=== PATIENT | male | born 1995 | race Caucasian/White ===

== ENCOUNTER 2016-08-25 06:50 | Observation (INO) | payer OTHER ==
[~2016-08-25] VITALS: Ht 172.7 cm; Wt 53.5 kg
[~2016-08-25 06:50] MED LIST: ALPR2TAB1 PO; CINA60TA1 PO; CLON0.1T42 PO; HYDR-3229 PO; HYDR-4452 PO; SEVE800T6 PO
[2016-08-25 07:03] VITALS: BP 100/69
--- NOTE | 2016-08-25 07:19 | NUR ---
TO ER BED 8
[2016-08-25] MEDS ORDERED: PROCHLORPERAZINE 10 MG/2 ML VIAL IVP ONE (07:20)
[2016-08-25] MEDS ORDERED: diphenhydrAMINE 50 MG/ML VIAL IVP ONE (07:20)
[2016-08-25] MEDS ORDERED: SUMAtriptan 6 MG/0.5 ML VIAL SUBQ ONE (07:20)
--- NOTE | 2016-08-25 07:20 | NUR ---
Note undone in EDM - 08/25/16 at 0942 by [email or web address] /M BIB MOTHER C/O HEADACHE LAST NIGHT AND CAN'T SLEEP, NO TRAUMA NOR INJURY. PT HAS HX OF HTNM AN & ESRD. HD SITE YESSENIA;BRUIT&THRILL.hD X3 /WK ON & SAT . DENIES N/V/D; SKIN IS PINK/WARM/DRY; AAOX4 WITH EVEN AND STEADY GAIT; LUNGS CLEAR BL; HR EVEN AND REGULAR; PT DENIES ANY FEVER, CP, SOB, OR COUGH AT THIS TIME; PATIENT STATES PAIN OF 9/10 AT THIS TIME; VSS; PATIENT POSITIONED FOR COMFORT; HOB ELEVATED; BEDRAILS UP X2; BED DOWN. ER MD MADE AWARE OF PT STATUS.
--- NOTE | 2016-08-25 07:20 | NUR ---
20/M BIB MOTHER C/O HEADACHE LAST NIGHT AND CAN'T SLEEP, NO TRAUMA NOR INJURY. PT HAS HX OF HTNM AN & ESRD. HD SITE ROWENA;BRUIT&THRILL.hD X3 /WK ON TUE, & SAT . DENIES N/V/D; SKIN IS PINK/WARM/DRY; AAOX4 WITH EVEN AND STEADY GAIT; LUNGS CLEAR BL; HR EVEN AND REGULAR; PT DENIES ANY FEVER, CP, SOB, OR COUGH AT THIS TIME; PATIENT STATES PAIN OF 9/10 AT THIS TIME; VSS; PATIENT POSITIONED FOR COMFORT; HOB ELEVATED; BEDRAILS UP X2; BED DOWN. ER MD MADE AWARE OF PT STATUS.
[2016-08-25] MEDS ORDERED: KETOROLAC 30 MG/ML VIAL IVP ONE (09:00)
[2016-08-25 09:34] LABS: BASOPHILS # (AUTO) 0.2 K/uL (0.00-0.22); BASOPHILS % (AUTO) 2.3 % (0.0-2.0); EOSINOPHILS # (AUTO) 0.2 K/uL (0-0.4); EOSINOPHILS % (AUTO) 2.6 % (0.0-4.0); HEMATOCRIT 37.6 % (36-52); HEMOGLOBIN 12.1 g/dL (12.0-18.0); LYMPHOCYTES # (AUTO) 2.6 K/uL (2.0-11.5); MEAN CORPUSCULAR HEMOGLOBIN 31 pg (27-31); MEAN CORPUSCULAR HGB CONC 32 g/dL (33-37); MEAN CORPUSCULAR VOLUME 97 fL (80-94); MONOCYTES # (AUTO) 0.4 K/uL (0.8-1.0); MONOCYTES % (AUTO) 6.6 % (1.7-9.3); NEUTROPHILS # (AUTO) 3.3 K/uL (1.8-7.7); NEUTROPHILS % (AUTO) 49.5 % (42.2-75.2); PLATELET COUNT (AUTO) 156 K/uL (140-450); RED BLOOD CELL COUNT(AUTO) 3.88 MIL/uL (4.20-6.10); RED CELL DISTRIBUTION WIDTH 13.8 % (11.6-13.7); WHITE BLOOD COUNT (AUTO) 6.7 K/uL (4.8-10.8)
--- NOTE | 2016-08-25 09:36 | NUR ---
PT TAKEN TO CT VIA W/C ACCOMPANIED BY LEGGER PRESS OPERATOR
--- NOTE | 2016-08-25 09:42 | NUR ---
PT RETURN FROM CT
[2016-08-25 09:43] LABS: ALBUMIN 4.6 g/dL (3.4-5.0); ANION GAP 18.1 (8-16); CALCIUM 8.4 mg/dL (8.5-10.1); CARBON DIOXIDE 30.8 mmol/L (21-32); POTASSIUM 5.9 mmol/L (3.5-5.1); TOTAL BILIRUBIN 0.4 mg/dL (0.0-1.0); TOTAL PROTEIN, SERUM 9.1 g/dL (6.4-8.2)
[2016-08-25 09:46] LABS: CREATININE 8.7 mg/dL (0.6-1.3)
[2016-08-25] MEDS ORDERED: SODIUM BICARBONATE 8.4% PFS 50 MEQ/50 ML SYR IVP ONE (09:50)
[2016-08-25] MEDS ORDERED: INSULIN HUMAN REGULAR 100 UNITS/ML 10 ML VIAL IVP ONE (09:50)
[2016-08-25] MEDS ORDERED: DEXTROSE 50% 50 ML SYR IVP ONE ×2 (09:50→11:35)
[2016-08-25] MEDS ORDERED: ALBUTEROL 0.083% 2.5 MG/3 ML NEBU INH ONE (09:50)
[2016-08-25] MEDS ORDERED: SODIUM POLYSTYRENE 15 GM/60 ML UDBTL PO ONE (09:50)
[2016-08-25] MEDS ORDERED: HYDROcodone/APAP 5/325 MG 1 TAB TAB PO PRN ×2 (11:00)
[2016-08-25] MEDS ORDERED: ACETAMINOPHEN 325 MG TAB PO PRN (11:00)
[2016-08-25] MEDS ORDERED: ONDANSETRON 4 MG/2 ML VIAL IVP PRN (11:00)
[2016-08-25] MEDS ORDERED: HYDROcodone/APAP 10/325 MG 1 TAB TAB PO PRN (11:05)
--- NOTE | 2016-08-25 11:38 | NUR ---
BS 38. GAVE JUICE 120 ML. NOTIFIED .ORDER GLUCOSE 50ML.PT AAOX4.
--- NOTE | 2016-08-25 11:56 | NUR ---
BS 87Patient appears to be resting comfortably in bed. Vital Signs within normal limits. Respirations even and unlabored.
[2016-08-25] MEDS ORDERED: NACL 0.9% 250 ML IV ONE (12:10)
--- NOTE | 2016-08-25 12:25 | NUR ---
Patient will be admitted to care of DR YEAGER. Admited to ICU. Will go to room5. Belongings list completed. Report to GEM DELVALLE.
[2016-08-25] MEDS ORDERED: SUMAtriptan 25 MG TAB PO SCH (12:30)
--- NOTE | 2016-08-25 12:50 | NUR ---
ADMITTING A 20 YEAR OLD MALE FROM ER WITH CO THROBBING HEADACHE 8/10,CONSTANT FROM HOME .PER PATIENT TORADOL FROM ER DID NOT HELP.JACIEL BENAVIDEZ AWARE.WILL GIVE PAIN MEDS ORDERED.NSR ON THE MONITOR.RIGHT UPPER ARM AV FISTULA POSITIVE FOR BRUIT AND THRILL.PER PT WITH LEFT ARM AV FISTULA NONFUNCTIONAL BECAUSE IT DID MATURE.LEFT FOREARM 22 GAUGE WITH NORMAL SALINE RUNNING.PER PT ANURIC SO UNABLE TO GET URINE DRUG SCREEN.PER PT SLEEPS LATE AT NIGHT PLAYING VIDEOGAMES.NO CO SHORTNESS OF BREATH.WILL MONITOR
[2016-08-25 12:51] VITALS: BP 98/63
[2016-08-25] MEDS: cloNIDine 0.1 MG TAB PO SCH ×2 (13:00→17:00)
[2016-08-25] MEDS: HYDROcodone/APAP 10/325 MG 1 TAB TAB PO PRN ×2 (13:14→21:58)
[2016-08-25] MEDS: LORazepam 2 MG/ML VIAL IVP PRN ×2 (13:15→18:02)
--- NOTE | 2016-08-25 14:00 | NUR ---
NO CO HEADACHE PER PT PAIN MEDS HELPED.
[2016-08-25] MEDS ORDERED: MIDODRINE 5 MG TAB PO PRN (14:20)
[2016-08-25 16:00] VITALS: BP 110/65
--- NOTE | 2016-08-25 16:06 | NUR ---
MOTHER AND SISTER AT THE BEDSIDE AND UPDATED ABOUT PATIENTS CONDITION.NO CO HEADACHE.
--- NOTE | 2016-08-25 16:23 | NUR ---
BARBARA GOODSON FROM [facility] NOTIFIED OF HD ORDER FOR TOMORROW.
--- NOTE | 2016-08-25 16:30 | NUR ---
DAVID STODDARD MADE AWARE OF ORDER TOMORROW. Addendum: 08/25/16 at 0294 by Suzan Wheeler RN RN CLARIFICATION OF NAME IS BARBARA GOODSON FROM .
--- NOTE | 2016-08-25 17:00 | NUR ---
NO CO PAIN.SCD APPLIED
[2016-08-25] MEDS: SEVELAMER CARBONATE 800 MG TAB PO SCH (18:01)
[2016-08-25] MEDS ORDERED: BLOOD GLUCOSE MONITORING 1 DEV DEV FS SCH (19:00)
--- NOTE | 2016-08-25 19:00 | NUR ---
BLOOD SUGAR 112 Addendum: 08/25/16 at 1901 by Suzan Wheeler RN RN BLOOD SUGAR 113 NOT 112 MG/DL
--- NOTE | 2016-08-25 19:21 | NUR ---
RECEIVED REPORT FROM MOOK RABAGO. PATIENT IS ALERT, AWAKE, AND SITTING UP IN BED WATCHING TV. NO SIGNS OF DISTRESS OR SOB NOTED. PATIENT IS TELEMETRY STATUS WITH DX OF INTRACTABLE HEADACHE. BREATH SOUNDS ARE CLEAR ON AUSCULTATION AND BOWEL SOUNDS ARE ACTIVE. PATIENT IS AFEBRILE AND IS ST ON CAN CARRIER. NO REPORTS OF PAIN OR DISCOMFORT AT THIS TIME. THERE IS A #22 IN THE LEFT FOREARM SALINE LOCK. THERE IS AN AV FISTULA IN THE RIGHT UPPER ARM FOR DIALYSIS. SCDS ARE IN PLACE FOR VTE PROPHYLAXIS. EXPLAINED PLAN OF CARE TONIGHT TO INCLUDE MEDICATION ADMINISTRATION, TELEMETRY MONITORING, AND VITAL SIGNS Q4H. PATIENT VERBALIZED UNDERSTANDING. PATIENT'S NEEDS MET AT THIS TIME. CALL LIGHT WITHIN REACH. CONTINUE TO MONITOR PATIENT.
[2016-08-25] MEDS: diphenhydrAMINE 50 MG/ML VIAL IVP PRN (19:35)
[2016-08-25 20:00] VITALS: BP 107/67
[2016-08-25] MEDS: hydrALAZINE 25 MG TAB PO SCH (20:37)
[2016-08-25] MEDS: ALPRAZolam 0.5 MG TAB PO SCH (20:37)
--- NOTE | 2016-08-25 20:40 | NUR ---
PATIENT TOLERATED DUE MEDICATIONS. EXPLAINED INDICATIONS AND BENEFITS FOR HEPARIN AND HYDRALAZINE. PATIENT REFUSED SCHEDULED 2100 HEPARIN AND HYDRALAZINE. PATIENT'S NEEDS MET AT THIS TIME. CALL LIGHT WITHIN REACH. CONTINUE TO MONITOR PATIENT.
--- NOTE | 2016-08-25 21:30 | NUR ---
PATIENT COMPLAINING OF HEADACHE. WILL MEDICATE PER DOCTOR'S ORDERS. Addendum: 08/25/16 at 2202 by Nadiya Jesus RN BLOOD PRESSURE IS 131/92 AND HR IS 106. HEADACHE 11/04.
--- NOTE | 2016-08-25 21:35 | NUR ---
PATIENT REFUSED NORCO 10/325 TWO TABLETS PO AT THIS TIME AND STATED "I DON'T THINK NORCO IS WORKING FOR ME. CAN YOU PLEASE CALL DR. BERNAL AND GET ME MORPHINE PLEASE?" CHARGE NURSE RICHMOND RABAGO MADE AWARE.
--- NOTE | 2016-08-25 21:38 | NUR ---
PAGED DR. CESAR, WHO IS SALES AGENT TRADING STAMPS DR. BERNAL. WILL WAIT CALL BACK.
--- NOTE | 2016-08-25 21:40 | NUR ---
SPOKE TO DR. CESAR REGARDING PATIENT'S REQUEST FOR MORPHINE. DR. FRITZ STATED THE PATIENT NEEDS TO SLEEP AND WILL NOT PUT IN ORDERS FOR MORPHINE. DR. CESAR ORDERED RESTORIL 15MG PO HS. WILL FOLLOW UP WITH NEW MD ORDERS.
[2016-08-25] MEDS ORDERED: TEMAZEPAM 15 MG CAP PO SCH (21:45)
--- NOTE | 2016-08-25 23:05 | NUR ---
PATIENT REQUESTED ICE CHIPS. PROVIDED WITH 1 CUP OF ICE CHIPS. PATIENT'S NEEDS MET AT THIS TIME. WILL CONTINUE TO MONITOR.
[2016-08-26] VITALS: BP 115/62
[2016-08-26] MEDS: LORazepam 2 MG/ML VIAL IVP PRN ×2 (00:21→06:33)
[2016-08-26] MEDS: diphenhydrAMINE 50 MG/ML VIAL IVP PRN (02:22)
--- NOTE | 2016-08-26 02:50 | NUR ---
PATIENT RESTING COMFORTABLY. NO SIGNS OF DISTRESS NOTED. CALL LIGHT WITHIN REACH. CONTINUE TO MONITOR.
[2016-08-26 04:00] VITALS: BP 98/44
--- NOTE | 2016-08-26 04:00 | NUR ---
PATIENT IS RESTING COMFORTABLY IN BED. BREATHING IS EVEN AND UNLABORED. CALL LIGHT WITHIN REACH. WILL CONTINUE TO MONITOR PATIENT.
--- NOTE | 2016-08-26 04:50 | NUR ---
ANIMAL BEHAVIOURIST RICKI AT BEDSIDE FOR SCHEDULED LAB DRAWS.
[2016-08-26 05:30] LABS: BASOPHILS # (AUTO) 0.1 K/uL (0.00-0.22); EOSINOPHILS # (AUTO) 0.2 K/uL (0-0.4); EOSINOPHILS % (AUTO) 1.8 % (0.0-4.0); HEMATOCRIT 33.2 % (36-52); HEMOGLOBIN 10.9 g/dL (12.0-18.0); LYMPHOCYTES # (AUTO) 2.2 K/uL (2.0-11.5); LYMPHOCYTES % (AUTO) 21.2 % (20.5-51.1); MEAN CORPUSCULAR HEMOGLOBIN 32 pg (27-31); MEAN CORPUSCULAR HGB CONC 33 g/dL (33-37); MEAN CORPUSCULAR VOLUME 96 fL (80-94); MONOCYTES # (AUTO) 0.6 K/uL (0.8-1.0); MONOCYTES % (AUTO) 6.1 % (1.7-9.3); NEUTROPHILS # (AUTO) 7.1 K/uL (1.8-7.7); NEUTROPHILS % (AUTO) 69.9 % (42.2-75.2); PLATELET COUNT (AUTO) 155 K/uL (140-450); RED BLOOD CELL COUNT(AUTO) 3.46 MIL/uL (4.20-6.10); RED CELL DISTRIBUTION WIDTH 13.5 % (11.6-13.7); WHITE BLOOD COUNT (AUTO) 10.2 K/uL (4.8-10.8)
[2016-08-26 06:09] LABS: ANION GAP 17.9 (8-16); CALCIUM 8.9 mg/dL (8.5-10.1); CARBON DIOXIDE 30.5 mmol/L (21-32); MAGNESIUM 2.6 mg/dL (1.8-2.4); PHOSPHORUS 6.8 mg/dL (2.5-4.9); POTASSIUM 4.4 mmol/L (3.5-5.1)
[2016-08-26 06:14] LABS: CREATININE 10.8 mg/dL (0.6-1.3)
[2016-08-26 06:30] LABS: HEPATITIS A ANTIBODY IGM Negative (Negative); HEPATITIS B CORE AB TOTAL Negative (Negative); HEPATITIS B CORE, IGM Negative (Negative); HEPATITIS B SURFACE AB Reactive (.); HEPATITIS B SURFACE ANTIGEN Negative (Negative); HEPATITIS C VIRUS ANTIBODY <0.1 s/co ratio (0.0-0.9)
[2016-08-26] MEDS: HYDROcodone/APAP 10/325 MG 1 TAB TAB PO PRN (06:32)
--- NOTE | 2016-08-26 07:18 | NUR ---
ENDORSED CONTINUITY OF CARE TO QASIM RABAGO.
--- NOTE | 2016-08-26 07:30 | NUR ---
RECEIVED REPORT FROM DENISE RABAGO. PATIENT AWAKE,ALERT, AND ORIENTED.ON ROOM AIR, NO SIGNS OF DISTRESS OR SOB NOTED. PATIENT IS TELEMETRY STATUS WITH DX OF INTRACTABLE HEADACHE. BREATH SOUNDS ARE CLEAR ON AUSCULTATION AND BOWEL SOUNDS ARE ACTIVE. BEDSIDE MONITOR SHOWS SR AT THIS TIME.IV #22 TO THE LEFT FOREARM SALINE LOCK. THERE IS AN AV FISTULA IN THE RIGHT UPPER ARM FOR DIALYSIS. SCDS ARE IN PLACE FOR VTE PROPHYLAXIS. EXPLAINED PLAN OF CARE TO PT. PATIENT VERBALIZED UNDERSTANDING.NO REPORTS OF PAIN OR DISCOMFORT AT THIS TIME . CALL LIGHT WITHIN REACH. WILL CONTINUE TO MONITOR PATIENT.
[2016-08-26] MEDS: SEVELAMER CARBONATE 800 MG TAB PO SCH (07:59)
[2016-08-26 08:00] VITALS: BP 110/68
[2016-08-26] MEDS: cloNIDine 0.1 MG TAB PO SCH (09:00)
[2016-08-26] MEDS: hydrALAZINE 25 MG TAB PO SCH (09:00)
[2016-08-26] MEDS ORDERED: CINACALCET 30 MG TAB PO SCH (09:00)
--- NOTE | 2016-08-26 09:00 | NUR ---
DUE MEDS GIVEN, PT TOLERATED WELL. PT REFUSED APRESOLINE, CATAPRES, HEPARIN. RISKS AND BENEFITS EXPLAINED TO PT, PT STILL REFUSED. BP110/68 AT THIS TIME.
--- NOTE | 2016-08-26 09:07 | NUR ---
PATIENT HAS BEEN SCREENED AND CATEGORIZED HIGH NUTRITION RISK. PATIENT WILL BE SEEN WITHIN 1-2 DAYS OF ADMISSION. 08/25/16-08/26/[address]
[2016-08-26] MEDS: ALPRAZolam 0.5 MG TAB PO SCH (09:08)
--- NOTE | 2016-08-26 09:10 | NUR ---
CHARGE NURSE CALLED BARBARA GOODSON TO CANCEL DIALYSIS TODAY PT WILL GO DIALYSIS CENTER BY HIMSELF.
--- NOTE | 2016-08-26 09:30 | NUR ---
IN TO ASSESS PT. DISCHARGE ORDER RECEIVED. PT AWAKE, ALERT, AND ORIENTED. DISCHARGE INSTRUCTION GIVEN. PT VERBALIZED UNDERSTANDING AND SIGNED ALL THE DISCHARGE PAPER WORK. IV D/C ED AND ARMBANDS REMOVED. ALL THE PERSONAL BELONGINGS WITH PT. PT STATED HE WILL GO DIALYSIS TODAY AFTER BEING DISCHARGED. PT WALKED OUT OF UNIT WITH STEADY GAIT WITH OUT PAIN OR DISCOMFORT AT THIS TIME. GEM GARCIA WALKED WITH PT TO ER PARKING LOT WHERE PT'S MOTHER PICK HIM UP.
[2016-08-26 14:25] LABS: HEPATITIS A ANTIBODY TOTAL Positive (Negative)
--- NOTE | 2016-08-27 11:33 | NUR ---
DISCHARGE SUMMARY FAXED TO [facility] [phone] LEO [phone]
== END 2016-08-26 09:30 | disposition still patient (30) ==
LOC: MED 06:50 → MIC 10:57
PROVIDERS: ADMIT Hospitalist; ATTEND Hospitalist
DX: G43.909 Migraine, unspecified, not intractable, without status migrainosus (principal); D63.8 Anemia in other chronic diseases classified elsewhere; E87.5 Hyperkalemia; F12.90 Cannabis use, unspecified, uncomplicated; F41.9 Anxiety disorder, unspecified; I12.0 Hypertensive chronic kidney disease with stage 5 chronic kidney disease or end stage renal disease; N18.6 End stage renal disease; Z99.2 Dependence on renal dialysis
CPT/HCPCS: 36415; 70450; 80048; 80053; 82948; 83735; 84100; 85025; 86704; 86706; 86708; 86709; 86803; 87081; 87340; 93005; 94640; 96372; 96374; 96375; 96376; 99285; G0378; J0780; J1200; J1815; J1885; J2060; J3030; J7030; J7613; 96361; J1644

== ENCOUNTER 2017-03-14 11:39 | Emergency (ER) | payer OTHER ==
[~2017-03-14] VITALS: Ht 170.2 cm; Wt 53.7 kg
[~2017-03-14 11:39] MED LIST changes: +ACET-787 PO; -HYDR-4452 PO
[2017-03-14 11:55] VITALS: BP 123/78
--- NOTE | 2017-03-14 12:00 | NUR ---
PER DR DREW PRESSURE APPLIED ON RT ARM USING DANIEL WRAP BY ROBBY MONROE, PT AMBULATED TO BED 12
--- NOTE | 2017-03-14 12:05 | NUR ---
PT PLACED IN BED 12.
--- NOTE | 2017-03-14 12:30 | NUR ---
21M BIB SELF WITH C/O MODERATE BLEEDING, APPROX 20CC, TO AV SHUNT TO RIGHT UPPER ARM THAT WAS "DE-CLOTTED WITH HEPARIN AND TPA" DONE TODAY AT [facility] AT 0900; PT DENIES ANY DIZZINESS, CP, SOB, OR FATIGUE AT THIS TIME. AT THIS TIME, BLEEDING STOPPED. SITE IS CLEAN, DRY AND INTACT. PT IS AOX4, RR ARE EVEN AND UNLABORED. NAD. ER MD AWARE OF PT STATUS. WILL CONTINUE TO MONITOR.
--- NOTE | 2017-03-14 12:30 | NUR ---
Note undone in EDM - 03/14/17 at 1305 by JESSICA 21M BIB SELF WITH C/O MODERATE BLEEDING, APPROX 20CC, TO SKIN GRAFT SITE DONE TODAY 6AT [facility] AT 0900; PT DENIES ANY DIZZINESS, CP, SOB, OR FATIGUE AT THIS TIME. AT THIS TIME, BLEEDING STOPPED. SITE IS CLEAN, DRY AND INTACT. PT IS AOX4, RR ARE EVEN AND UNLABORED. NAD. JULIO DAVIS AWARE OF PT STATUS. WILL CONTINUE TO MONITOR.
[2017-03-14 13:08] VITALS: BP 129/85
--- NOTE | 2017-03-14 13:08 | NUR ---
Patient discharged with v/s stable. Written and verbal after care instructions given and explained. Patient verbalized understanding. Ambulatory with to car. All questions addressed prior to discharge. Advised to follow up with PMD.
== END 2017-03-14 13:08 | disposition home or self-care (01) ==
LOC: MED 11:39
DX: T82.838A Hemorrhage due to vascular prosthetic devices, implants and grafts, initial encounter (principal); I12.0 Hypertensive chronic kidney disease with stage 5 chronic kidney disease or end stage renal disease; N18.6 End stage renal disease; Z79.899 Other long term (current) drug therapy; Z88.1 Allergy status to other antibiotic agents; Z91.041 Radiographic dye allergy status; X58.XXXA Exposure to other specified factors, initial encounter; Y93.89 Activity, other specified; Y92.89 Other specified places as the place of occurrence of the external cause; Y99.8 Other external cause status
CPT/HCPCS: 99281

== ENCOUNTER 2019-06-14 10:24 | Emergency (ER) | payer OTHER ==
[~2019-06-14] VITALS: Ht 172.7 cm; Wt 59.4 kg
[2019-06-14 10:34] VITALS: BP 126/72
== END 2019-06-14 11:47 | disposition left against medical advice (07) ==
LOC: MED 10:24
DX: T82.41XA Breakdown (mechanical) of vascular dialysis catheter, initial encounter (principal); I12.0 Hypertensive chronic kidney disease with stage 5 chronic kidney disease or end stage renal disease; N18.6 End stage renal disease; F41.9 Anxiety disorder, unspecified; Z99.2 Dependence on renal dialysis; Z98.890 Other specified postprocedural states; Z88.8 Allergy status to other drugs, medicaments and biological substances; Z79.899 Other long term (current) drug therapy; Y84.6 Urinary catheterization as the cause of abnormal reaction of the patient, or of later complication, without mention of misadventure at the time of the procedure; Y92.89 Other specified places as the place of occurrence of the external cause
CPT/HCPCS: 71045; 99283; Q0092; 93005

== ENCOUNTER 2019-11-06 11:11 | Emergency (ER) | payer OTHER ==
[~2019-11-06] VITALS: Ht 170.2 cm; Wt 61.2 kg
[~2019-11-06 11:11] MED LIST changes: -ACET-787 PO; +HYDR-5191 PO
[2019-11-06 11:13] VITALS: BP 112/70
--- NOTE | 2019-11-06 11:20 | NUR ---
PT REQUESTING MED REFIL OF ALPRAZOLAM 1MG TO GET HIM THROUGH UNTIL 11/08/19 WHEN HE SEES HIS PCP. DENIES SYMPTOMS OF ANY KIND.
--- NOTE | 2019-11-06 11:26 | NUR ---
PATIENT AMBULATED TO BED 12
--- NOTE | 2019-11-06 11:28 | NUR ---
Patient being evaluated by DR HANLEY at bedside.
--- NOTE | 2019-11-06 11:42 | NUR ---
Patient discharged with v/s stable. Written and verbal after care instructions given and explained. Patient alert, oriented and verbalized understanding of instructions. with to car. All questions addressed prior to discharge. ID band removed. Patient advised to follow up with PMD. Rx of ALPRAZOLAM given. Patient educated on indication of medication including possible reaction and side effects. Opportunity to ask questions provided and answered.
[2019-11-06 11:43] VITALS: BP 112/70
== END 2019-11-06 11:42 | disposition home or self-care (01) ==
LOC: MED 11:11
DX: F41.0 Panic disorder [episodic paroxysmal anxiety] (principal); I12.0 Hypertensive chronic kidney disease with stage 5 chronic kidney disease or end stage renal disease; N18.6 End stage renal disease; D64.9 Anemia, unspecified; Z76.0 Encounter for issue of repeat prescription; Z99.2 Dependence on renal dialysis; Z98.890 Other specified postprocedural states; Z79.899 Other long term (current) drug therapy; Z88.8 Allergy status to other drugs, medicaments and biological substances
CPT/HCPCS: 99283

== ENCOUNTER 2019-11-15 11:54 | Emergency (ER) | payer OTHER ==
[~2019-11-15] VITALS: Ht 170.2 cm; Wt 61.2 kg
[2019-11-15 11:58] VITALS: BP 108/69
--- NOTE | 2019-11-15 12:05 | NUR ---
RECEIVED A 24/M FROM TRIAGE WITH A REQUEST FOR A REFILL OF XANAX FOR HIS ANXIETY. DENIES ANY PAIN OR MEDICAL COMPLAINT. NO DISTRESS. IN BED FOR MSE.
--- NOTE | 2019-11-15 12:05 | NUR ---
TAKEN TO BED 11
[2019-11-15 12:36] VITALS: BP 108/69
== END 2019-11-15 12:35 | disposition home or self-care (01) ==
LOC: MED 11:54
DX: F41.9 Anxiety disorder, unspecified (principal); I10 Essential (primary) hypertension; Z88.1 Allergy status to other antibiotic agents; Z79.899 Other long term (current) drug therapy; Z87.448 Personal history of other diseases of urinary system; Z76.0 Encounter for issue of repeat prescription
CPT/HCPCS: 99281

== ENCOUNTER 2019-11-30 10:58 | Emergency (ER) | payer OTHER ==
[~2019-11-30] VITALS: Ht 170.2 cm; Wt 61.2 kg
[2019-11-30 10:59] VITALS: BP 138/95
--- NOTE | 2019-11-30 11:04 | NUR ---
24 Y/O M C/C REFILL ON MEDICATION. PER PT NO OTHER COMPLAINT, PT WENT TO PCP AND GIVEN GABAPANTIN, PER PT NEED XANAX REFILL. PT PRESENTS A/OX4,AMBULATORY,EUPNIC,VSS. ALLERGIES VANCOMYCIN. HX ANXIETY,HTN,RENAL FAILURE. RX XANAX,CLONODINE. NO NVD. SIDE RAIL X1.
--- NOTE | 2019-11-30 11:10 | NUR ---
Dr. Hoover is evaluating the patient at bedside.
[2019-11-30 11:19] VITALS: BP 130/90
== END 2019-11-30 11:19 | disposition home or self-care (01) ==
LOC: MED 10:58
DX: F41.9 Anxiety disorder, unspecified (principal); I10 Essential (primary) hypertension; N28.9 Disorder of kidney and ureter, unspecified; Z76.0 Encounter for issue of repeat prescription; Z88.1 Allergy status to other antibiotic agents; Z79.899 Other long term (current) drug therapy
CPT/HCPCS: 99281; 99283

== ENCOUNTER 2020-04-01 04:05 | Emergency (ER) | payer OTHER ==
[~2020-04-01] VITALS: Ht 172.7 cm; Wt 61.2 kg
[2020-04-01 04:25] VITALS: BP 100/70
--- NOTE | 2020-04-01 04:28 | NUR ---
TO LOBBY A/W BED AMBULATORY
--- NOTE | 2020-04-01 04:33 | NUR ---
SEEN AND EXAMINED BY ERMD AND FOR D/C
[2020-04-01 04:50] VITALS: BP 100/70
== END 2020-04-01 04:50 | disposition home or self-care (01) ==
LOC: MED 04:05
DX: F41.9 Anxiety disorder, unspecified (principal); I10 Essential (primary) hypertension; Z98.890 Other specified postprocedural states; Z79.899 Other long term (current) drug therapy; Z88.8 Allergy status to other drugs, medicaments and biological substances
CPT/HCPCS: 99283

== ENCOUNTER 2020-06-29 21:50 | Emergency (ER) | payer OTHER ==
[~2020-06-29] VITALS: Ht 172.7 cm; Wt 61.2 kg
[~2020-06-29 21:50] MED LIST changes: +CLON0.1T16 PO; -CLON0.1T42 PO
[2020-06-29 21:57] VITALS: BP 109/72
[2020-06-29 22:33] VITALS: BP 109/72
== END 2020-06-29 22:33 | disposition left against medical advice (07) ==
LOC: MED 21:50
DX: M79.10 Myalgia, unspecified site (principal); W06.XXXA Fall from bed, initial encounter; Y93.89 Activity, other specified; Y92.89 Other specified places as the place of occurrence of the external cause; Y99.8 Other external cause status
CPT/HCPCS: 99281; 99283

== ENCOUNTER 2020-07-31 08:17 | Emergency (ER) | payer OTHER ==
[~2020-07-31] VITALS: Ht 172.7 cm; Wt 66.8 kg
[2020-07-31 08:33] VITALS: BP 120/76
--- NOTE | 2020-07-31 08:58 | NUR ---
BIB FATHER FOR Medication Refill: NORCO, PATIENT HAD LEFT KNEE FRACTURE LAST MONTH AND HAS RAN OUT OF HIS NORCO, PATIENT STATES FRACTURE WAS LOCATED IN [place]. PAIN IS SHARP, 10/10, PATIENT AMBULATORY WITH CRUTCHES. NO SOB/FEVER AT THIS TIME. GCS 15. PMH: ESRD WITH DIALYSIS (TUE,THUR,SAT), HTN, LEFT KNEE FRACTURE 07/08/20 & HAVE THE APPPOINTMENT 08/05/20
[2020-07-31] MEDS ORDERED: ACET-8386 PO (09:14)
--- NOTE | 2020-07-31 09:21 | NUR ---
Patient discharged with v/s stable. Written and verbal after care instructions given and explained. Patient alert, oriented and verbalized understanding of instructions. Ambulatory with crutches. All questions addressed prior to discharge. ID band removed. Patient advised to follow up with PMD. Rx of norco given. Patient educated on indication of medication including possible reaction and side effects. Opportunity to ask questions provided and answered.
[2020-07-31 09:22] VITALS: BP 120/76
== END 2020-07-31 09:21 | disposition home or self-care (01) ==
LOC: MED 08:17
DX: S82.002D Unspecified fracture of left patella, subsequent encounter for closed fracture with routine healing (principal); I12.0 Hypertensive chronic kidney disease with stage 5 chronic kidney disease or end stage renal disease; N18.6 End stage renal disease; Z99.2 Dependence on renal dialysis; Z76.0 Encounter for issue of repeat prescription; Z88.1 Allergy status to other antibiotic agents; X58.XXXD Exposure to other specified factors, subsequent encounter
CPT/HCPCS: 29505; 99283